=== PATIENT | male | born 1995 | race Caucasian/White ===

== ENCOUNTER 2018-03-02 12:33 | Day surgery (SDC) | payer BC ==
[2018-03-02] MEDS ORDERED: PROPOFOL 60 ML (16:28)
== END 2018-03-02 16:11 | disposition home or self-care (01) ==
LOC: GIL 12:33
DX: K64.8 Other hemorrhoids (principal); R19.7 Diarrhea, unspecified; A04.72 Enterocolitis due to Clostridium difficile, not specified as recurrent
CPT/HCPCS: 45384; 88305